=== PATIENT | female | born 1975 ===

== ENCOUNTER 2018-08-27 09:16 | Emergency (ER) | payer SELFPAY ==
[2018-08-27 09:31] VITALS: BMI 27.4
[2018-08-27 09:32] VITALS: BP 110/74; PULSE 68; RESP 20; TEMP 98.2; O2SAT 100
--- NOTE | 2018-08-27 09:50 | ED PDOC ---
HPI: Influenza Time Seen by Provider: 08/27/18 09:43 History Per: Patient Onset/Duration Of Symptoms: Days (2) Symptoms include: fever, headache, bodyaches, sore throat, cough, nasal congestion Additional complaint(s):: Fever sore throat and cough assoc with body aches, headache and sore throat x 2 days. Past Medical History Vital Signs: Last Vital Signs Temp 98.2 F 08/27/18 09:32 Pulse 68 08/27/18 09:32 Resp 20 08/27/18 09:32 BP 110/74 08/27/18 09:32 Pulse Ox 100 08/27/18 09:32 - Medical History PMH: No Chronic Diseases - Family History Family History: States: Unknown Family Hx - Home Medications Home Medications: Ambulatory Orders Medication Instructions Recorded Benzonatate [Tessalon Perle] 100 mg PO Q8 #12 capsule 08/27/18 Oseltamivir Cap [Tamiflu] 75 mg PO BID #10 cap 08/27/18 - Allergies Allergies/Adverse Reactions: Allergies Allergy/AdvReac Type Severity Reaction Status Date / Time Unobtainable Allergy Verified 08/27/18 09:48 Review of Systems ROS Statement: Except As Marked, All Systems Reviewed And Found Negative Constitutional: Positive for: Fever, Malaise ENT: Positive for: Nose Congestion, Throat Pain Respiratory: Positive for: Cough Physical Exam - Reviewed Nursing Documentation Reviewed: Yes Vital Signs Reviewed: Yes - Physical Exam Appears: Positive for: Non-toxic, No Acute Distress Head Exam: Positive for: ATRAUMATIC, NORMAL INSPECTION, NORMOCEPHALIC Skin: Positive for: Normal Color, Warm, DRY Eye Exam: Positive for: EOMI, Normal appearance, PERRL ENT: Positive for: Normal ENT Inspection Neck: Positive for: Normal, Painless ROM Cardiovascular/Chest: Positive for: Regular Rate, Rhythm Respiratory: Positive for: CNT, Normal Breath Sounds Gastrointestinal/Abdominal: Positive for: Normal Exam, Soft Back: Positive for: Normal Inspection Extremity: Positive for: Normal ROM Neurologic/Psych: Positive for: Alert, Oriented - ECG O2 Sat by Pulse Oximetry: 100 Disposition - Clinical Impression Clinical Impression: Influenza - Patient ED Disposition Is Patient to be Admitted: No Counseled Patient/Family Regarding: Diagnosis, Need For Followup, Rx Given - Disposition Referrals: [facility] [Outside] Disposition: Routine/Home Disposition Time: 09:51 Condition: FAIR Prescriptions: Benzonatate [Tessalon Perle] 100 mg PO Q8 #12 capsule Oseltamivir Cap [Tamiflu] 75 mg PO BID #10 cap Instructions: Flu Print Language: SAMMARINESE
== END 2018-08-27 10:05 | disposition home or self-care (01) ==
LOC: H.ER 09:16
DX: J11.1 Influenza due to unidentified influenza virus with other respiratory manifestations (principal)

== ENCOUNTER 2018-09-18 08:37 | Emergency (ER) | payer SELFPAY ==
[2018-09-18 08:48] VITALS: O2SAT 100
[2018-09-18 08:49] VITALS: BMI 29.8
--- NOTE | 2018-09-18 10:13 | ED PDOC ---
History of Present Illness History of Present Illness: 43 year old female with no past medical history who is presenting to the ED for evaluation of cough with yellow sputum and subjective fever onset 3 days ago. Patient also complains of pain to mid upper chest associated with the cough. She admits that she recently finished a course of Tamiflu and offers no other medical complaints at this time. PMD: none provided HPI: Influenza Time Seen by Provider: 09/18/18 09:11 Chief Complaint: Cough, Cold, Congestion Chief Complaint (Provider): Cough, Cold, Congestion History Per: Patient Exam Limitations: no limitations Onset/Duration Of Symptoms: Days (x3) Symptoms include: fever, cough, chest pain Past Medical History Reviewed: Historical Data, Nursing Documentation, Vital Signs Vital Signs: Last Vital Signs Temp 97.1 F L 09/18/18 08:48 Pulse 62 09/18/18 08:48 Resp 18 09/18/18 08:48 BP 112/67 09/18/18 08:48 Pulse Ox 100 09/18/18 08:48 - Medical History PMH: No Chronic Diseases - Surgical History Surgical History: Back Surgery, - Family History Family History: States: Unknown Family Hx - Social History Current smoker - smoking cessation education provided: No Alcohol: None Drugs: Denies - Home Medications Home Medications: Ambulatory Orders Medication Instructions Recorded Benzonatate [Tessalon Perle] 100 mg PO Q8 #12 capsule 08/27/18 Oseltamivir Cap [Tamiflu] 75 mg PO BID #10 cap 08/27/18 Albuterol HFA [Ventolin HFA 90 2 puff IH [id number] PRN #1 bottle 09/18/18 mcg/actuation (8 g)] Azithromycin [Zithromax] 250 mg PO DAILY #4 tab 09/18/18 - Allergies Allergies/Adverse Reactions: Allergies Allergy/AdvReac Type Severity Reaction Status Date / Time aspirin AdvReac RASH Verified 09/18/18 09:16 Review of Systems ROS Statement: Except As Marked, All Systems Reviewed And Found Negative Constitutional: Positive for: Fever Cardiovascular: Positive for: Chest Pain Respiratory: Positive for: Cough, Sputum Physical Exam - Reviewed Nursing Documentation Reviewed: Yes Vital Signs Reviewed: Yes - Physical Exam Appears: Positive for: Well, Non-toxic, No Acute Distress Head Exam: Positive for: ATRAUMATIC, NORMAL INSPECTION, NORMOCEPHALIC Skin: Positive for: Normal Color, Warm, DRY Eye Exam: Positive for: EOMI, Normal appearance, PERRL ENT: Positive for: Normal ENT Inspection Neck: Positive for: Normal, Painless ROM Cardiovascular/Chest: Positive for: Regular Rate, Rhythm. Negative for: Murmur Respiratory: Positive for: Normal Breath Sounds, Other (speaking in full sentences ). Negative for: Respiratory Distress Gastrointestinal/Abdominal: Positive for: Normal Exam, Soft. Negative for: Tenderness Extremity: Positive for: Normal ROM. Negative for: Deformity, Swelling Neurologic/Psych: Positive for: Alert, Oriented. Negative for: Motor/Sensory Deficits Medical Decision Making Medical Decision Making: Time: 10:00 Plan: --CMP --ED Urine Dipstick --CBC --Chest x-ray Accession No. : [id number] Patient Name / ID : DOUGLAS TALAVERA / [id number] Exam Date : 09/18/2018 10:02:49 ( Approved ) Study Comment : Sex / Age : F / 43Y Creator : Randall Sena MD Dictator : Randall Sena MD Fire Protection Designer : Order Selector : Randall Sena MD Approver2 : Report Date : 09/18/2018 13:04:29 My Comment : Date of service: 09/18/2018 HISTORY: Cough COMPARISON: No prior. TECHNIQUE: Chest PA and lateral FINDINGS: LUNGS: No active pulmonary disease. PLEURA: No significant pleural effusion identified. No pneumothorax apparent. CARDIOVASCULAR: No aortic atherosclerotic calcification present. Normal cardiac size. No pulmonary vascular congestion. OSSEOUS STRUCTURES: No significant abnormalities. VISUALIZED UPPER ABDOMEN: Normal. OTHER FINDINGS: None. IMPRESSION: No active disease. Scribe Attestation: Documented by Shanique Mcgrath, acting as a scribe for Loli Jacobs MD. Provider Scribe Attestation: All medical record entries made by the Scribe were at my direction and personally dictated by me. I have reviewed the chart and agree that the record accurately reflects my personal performance of the history, physical exam, medic al decision making, and the department course for this patient. I have also personally directed, reviewed, and agree with the discharge instructions and disposition. - Laboratory Results Result Diagrams: 09/18/18 10:15 09/18/18 10:15 - ECG O2 Sat by Pulse Oximetry: 100 (RA) Pulse Ox Interpretation: Normal Disposition - Clinical Impression Clinical Impression: Bronchitis - Disposition Referrals: [facility] [Outside] Disposition: Routine/Home Disposition Time: 13:59 Condition: STABLE Prescriptions: Albuterol HFA [Ventolin HFA 90 mcg/actuation (8 g)] 2 puff IH [id number] PRN #1 bottle PRN Reason: Shortness Of Breath Azithromycin [Zithromax] 250 mg PO DAILY #4 tab Instructions: Acute Bronchitis Forms: [email or web address] ([place]) Print Language: HEBREW
[2018-09-18 10:26] LABS: BASO % 0.7 % (0.0-2.0); EOS # 0.2 K/uL (0.0-0.7); EOS % 6.4 % (0.0-4.0); HEMOGLOBIN 12.8 g/dL (12.0-16.0); LYMPH # 2.3 K/uL (1.0-4.3); LYMPH % 62.8 % (20.0-40.0); MEAN CELL VOLUME 89.1 fl (81.0-99.0); MEAN CORPUSCULAR HEMOGLOBIN 29.6 pg (27.0-31.0); MEAN CORPUSCULAR HGB CONC 33.2 g/dL (33.0-37.0); MEAN PLATELET VOLUME 8.9 fl (7.2-11.7); MONO # 0.3 K/uL (0.0-0.8); MONO % 8.8 % (0.0-10.0); NEUT # 0.8 K/uL (1.8-7.0); NEUT % 21.3 % (50.0-75.0); RBC 4.34 Mil/uL (3.80-5.20); RED CELL DISTRIBUTION WIDTH 13.2 % (11.5-14.5); WHITE BLOOD COUNT 3.7 K/uL (4.8-10.8)
[2018-09-18 10:54] LABS: BLOOD UREA NITROGEN 12 mg/dl (7-17); GFR NON-AFRICAN AMERICAN > 60
[2018-09-18 10:55] LABS: ALBUMIN 3.6 g/dL (3.5-5.0); CALCIUM 8.6 mg/dL (8.4-10.2)
[2018-09-18 10:56] LABS: ALB/GLOB RATIO 1.1 (1.0-2.1); ALT/SGPT 24 U/L (9-52); AST/SGOT 25 U/L (14-36)
--- NOTE | 2018-09-18 13:08 | RAD ---
Date of service: 09/18/2018 HISTORY: Cough COMPARISON: No prior. TECHNIQUE: Chest PA and lateral FINDINGS: LUNGS: No active pulmonary disease. PLEURA: No significant pleural effusion identified. No pneumothorax apparent. CARDIOVASCULAR: No aortic atherosclerotic calcification present. Normal cardiac size. No pulmonary vascular congestion. OSSEOUS STRUCTURES: No significant abnormalities. VISUALIZED UPPER ABDOMEN: Normal. OTHER FINDINGS: None. IMPRESSION: No active disease.
[2018-09-18 14:36] VITALS: BP 114/71; PULSE 64; RESP 16; TEMP 97.8
== END 2018-09-18 14:30 | disposition home or self-care (01) ==
LOC: H.ER 08:37
DX: J40 Bronchitis, not specified as acute or chronic (principal); Z88.6 Allergy status to analgesic agent; Z79.899 Other long term (current) drug therapy

== ENCOUNTER 2018-10-30 10:19 | Emergency (ER) | payer SELFPAY ==
[2018-10-30 10:41] VITALS: BMI 31.4
[2018-10-30] MEDS ORDERED: Sodium Chloride 0.9% 1,000 ML IV STA (11:08)
--- NOTE | 2018-10-30 11:12 | ED PDOC ---
HPI: General Adult Time Seen by Provider: 10/30/18 11:09 Chief Complaint (Nursing): Flu-like Symptoms Chief Complaint (Provider): COUGH/URI/BODYACHES History Per: Patient (43 Y/O FEMALE HERE FOR EVALUATION OF FEVER/BODYACHES/COUGH X 4 DAYS. NO VOMITING/DIARRHEA. NOTES NAUSEA. NOTES DIZZINESS WELL.) Past Medical History Reviewed: Historical Data, Nursing Documentation, Vital Signs Vital Signs: Last Vital Signs Temp 97.7 F 10/30/18 10:38 Pulse 71 10/30/18 10:38 Resp 18 10/30/18 10:38 BP 104/70 10/30/18 10:38 Pulse Ox 97 10/30/18 10:38 - Surgical History Surgical History: Back Surgery, - Family History Family History: States: Unknown Family Hx - Home Medications Home Medications: Ambulatory Orders Medication Instructions Recorded Benzonatate [Tessalon Perle] 100 mg PO Q8 #12 capsule 08/27/18 Oseltamivir Cap [Tamiflu] 75 mg PO BID #10 cap 08/27/18 Albuterol HFA [Ventolin HFA 90 2 puff IH [id number] PRN #1 bottle 09/18/18 mcg/actuation (8 g)] Azithromycin [Zithromax] 250 mg PO DAILY #4 tab 09/18/18 Acetaminophen [Acetaminophen Extra 2 tab PO Q6 PRN #24 tablet 10/30/18 Strength] Oseltamivir Cap [Tamiflu] 75 mg PO BID #9 cap 10/30/18 Promethazine/Codeine 5 ml PO Q12 PRN #100 ml 10/30/18 [Codeine/Promethazine 10 MG/5 Ml-6.25 MG/5 Ml] - Allergies Allergies/Adverse Reactions: Allergies Allergy/AdvReac Type Severity Reaction Status Date / Time aspirin AdvReac RASH Verified 09/18/18 09:16 Review of Systems ROS Statement: Except As Marked, All Systems Reviewed And Found Negative Physical Exam - Reviewed Nursing Documentation Reviewed: Yes Vital Signs Reviewed: Yes - Physical Exam Appears: Positive for: Well, Non-toxic, No Acute Distress Head Exam: Positive for: ATRAUMATIC, NORMAL INSPECTION, NORMOCEPHALIC Skin: Positive for: Normal Color, Warm, DRY Eye Exam: Positive for: EOMI, Normal appearance, PERRL ENT: Positive for: Normal ENT Inspection Neck: Positive for: Normal, Painless ROM Cardiovascular/Chest: Positive for: Regular Rate, Rhythm Respiratory: Positive for: CNT, Normal Breath Sounds Gastrointestinal/Abdominal: Positive for: Normal Exam, Soft Back: Positive for: Normal Inspection Extremity: Positive for: Normal ROM Neurological/Psych: Positive for: Awake, Alert, Normal Tone - Laboratory Results Result Diagrams: 10/30/18 11:29 10/30/18 11:29 - ECG O2 Sat by Pulse Oximetry: 97 - Progress ED Course And Treament: flu a/b neg tamiflu 75mg x 1 dose in ED NS 1 liter wide open Disposition - Clinical Impression Clinical Impression: Influenza-like symptoms - Patient ED Disposition Is Patient to be Admitted: No - Disposition Referrals: [facility] [Outside] Disposition: Routine/Home Disposition Time: 12:06 Condition: FAIR Prescriptions: Acetaminophen [Acetaminophen Extra Strength] 2 tab PO Q6 PRN #24 tablet PRN Reason: Pain, Moderate (4-7) Oseltamivir Cap [Tamiflu] 75 mg PO BID #9 cap Promethazine/Codeine [Codeine/Promethazine 10 MG/5 Ml-6.25 MG/5 Ml] 5 ml PO Q12 PRN #100 ml PRN Reason: Cough Instructions: Flu, Adult (DC) Forms: [facility] ED School/Work Excuse Print Language: HEBREW
[2018-10-30 11:47] LABS: BASO % 0.5 % (0.0-2.0); EOS # 0.3 K/uL (0.0-0.7); EOS % 8.8 % (0.0-4.0); HEMOGLOBIN 13.1 g/dL (12.0-16.0); LYMPH # 1.9 K/uL (1.0-4.3); LYMPH % 58.6 % (20.0-40.0); MEAN CELL VOLUME 88.7 fl (81.0-99.0); MEAN CORPUSCULAR HEMOGLOBIN 29.6 pg (27.0-31.0); MEAN CORPUSCULAR HGB CONC 33.4 g/dL (33.0-37.0); MEAN PLATELET VOLUME 8.5 fl (7.2-11.7); MONO # 0.3 K/uL (0.0-0.8); MONO % 9.9 % (0.0-10.0); NEUT # 0.7 K/uL (1.8-7.0); NEUT % 22.2 % (50.0-75.0); NRBC % 0.1 % (0.0-0.0); RBC 4.43 Mil/uL (3.80-5.20); RED CELL DISTRIBUTION WIDTH 13.2 % (11.5-14.5); WHITE BLOOD COUNT 3.2 K/uL (4.8-10.8)
[2018-10-30 11:52] LABS: ALB/GLOB RATIO 1.1 (1.0-2.1); ALBUMIN 3.5 g/dL (3.5-5.0); ALT/SGPT 22 U/L (9-52); AST/SGOT 21 U/L (14-36); BLOOD UREA NITROGEN 11 mg/dl (7-17); CALCIUM 8.7 mg/dL (8.4-10.2); GFR NON-AFRICAN AMERICAN > 60
[2018-10-30 13:50] VITALS: BP 108/68; PULSE 68; RESP 16; TEMP 98.5; O2SAT 100
== END 2018-10-30 13:40 | disposition home or self-care (01) ==
LOC: H.ER 10:19
DX: J11.1 Influenza due to unidentified influenza virus with other respiratory manifestations (principal); Z88.6 Allergy status to analgesic agent
CPT/HCPCS: 80053; 81025; 85025; 87804; 96374; 96375; 99284; J2405; J7030